=== PATIENT | male | born 1975 | race Caucasian/White ===

== ENCOUNTER 2016-12-27 08:26 | Day surgery (SDC) | payer BC ==
[2016-12-26 10:08] LABS: BASOPHILS 0.2 %; BASOPHILS ABSOLUTE 0.02 10/3/uL (0.0-0.16); EOSINOPHILS 4.6 %; EOSINOPHILS ABSOLUTE 0.42 10/3/uL (0.0-0.53); HEMATOCRIT 39.8 % (40.0-51.0); HEMOGLOBIN 13.2 g/dL (13.6-17.8); IMMATURE GRANULOCYTES 0.2 %; IMMATURE GRANULOCYTES ABSOLUTE 0.02 10/3/uL (0.0-0.11); LYMPHOCYTES ABSOLUTE 2.74 10/3/uL (0.67-4.30); MEAN CORPUS HGB CONC 33.2 g/dL (32.0-36.0); MEAN CORPUSCULAR HEMOGLOB 30.3 pg (26.0-34.0); MEAN CORPUSCULAR VOLUME 91.3 fL (80-100); MEAN PLATELET VOLUME 10.6 fL (9.2-13.0); MONOCYTES 9.1 %; MONOCYTES ABSOLUTE 0.83 10/3/uL (0.21-1.20); NEUTROPHILS 55.9 %; NEUTROPHILS ABSOLUTE 5.09 10/3/uL (2.02-8.40); PLATELET COUNT 246 10/3/uL (150-400); RBC DISTRIBUTION WIDTH 14.5 % (12.0-16.0); RED CELL COUNT 4.36 10/6/uL (4.7-6.1); WHITE BLOOD CELLS 9.1 10/3/uL (4.5-10.5)
[2016-12-26 10:11] LABS: MANUAL DIFF NO %
[2016-12-26 10:29] LABS: A/G RATIO 1.1 (0.7-1.9); ALBUMIN 3.7 G/DL (3.5-5.0); BUN (BLOOD UREA NITROGEN) 15 MG/DL (6-23); CALCIUM, SERUM 8.7 MG/DL (8.5-10.4); CHLORIDE, SERUM 103 MMOL/L (96-112); CO2 (CARBON DIOXIDE) 31 MMOL/L (24-34); CREATININE 1.12 MG/DL (0.70-1.30); GFR AFRICAN AMERICAN 95 ML/MIN (>=60); GFR NON AFRICAN AMERICAN 82 ML/MIN (>=60); GLOBULIN 3.4 G/DL (2.5-4.1); GLUCOSE, SERUM 98 MG/DL (60-99); POTASSIUM, SERUM 4.9 MMOL/L (3.5-5.3); SGOT(AST) 35 U/L (5-40); SGPT(ALT) 70 U/L (5-65); SODIUM, SERUM 141 MMOL/L (135-148); TOTAL BILIRUBIN 0.3 MG/DL (0-1.2); TOTAL PROTEIN 7.1 G/DL (6.0-8.5)
[2016-12-26 10:30] LABS: ALKALINE PHOSPHATASE 132 U/L (45-117)
[2016-12-26 10:44] LABS: ASCORBIC ACID (UR NOT ORDER) NEG (NEG); BILIRUBIN, URINE NEGATIVE (NEG); KETONE, URINE NEGATIVE (NEG); LEUKOCYTE ESTERASE(NOT OR NEG (NEG); WBC (NOT ORDERED) (RFLEX) 1 (0-5)
--- NOTE | ~2016-12-27 | OP ---
Record Of Operation [facility] [address] [place] [address] NAME: SHOAIB HERRERA : 79 STATUS : [facility]#: [id number] AGE: 41 ADM/REG DATE : 12/27/16 MR#: [id number] REPORT SERV DATE: 12/27/16 DICTATED BY: NHUNG FRANCO DATE: 12/27/16 REPORT STATUS : Draft TRANSCRIBED BY: MODL DATE: 12/27/16 DATE OF PROCEDURE: 12/27/2016 PREOPERATIVE DIAGNOSIS: Symptomatic gallstones. POSTOPERATIVE DIAGNOSIS: Symptomatic gallstones with a massive fat-infiltrated liver obscuring the view to the gallbladder for cholecystectomy. PROCEDURE: Laparoscopic cholecystectomy with intraoperative cholangiogram. I did a 22 modifier, double the normal amount of time due to difficulty with exposure due to large liver. SURGEON: Nhung Franco M.D. ANESTHESIA: General endotracheal. ESTIMATED BLOOD LOSS: Nil. FLUIDS: Crystalloid. SPECIMEN: Gallbladder. DRAINS: None. COMPLICATIONS: None. CONDITION: Good. INDICATIONS: Mr. Herrera is a 41-year-old, suffering from recurring bouts of epigastric right upper quadrant abdominal pain. Workup reveals normal blood work, gallstones. After review of risks, benefits, options, and side effects, he would like to proceed with cholecystectomy to try to get symptom relief. PROCEDURE IN DETAIL: After being identified in preop holding, he was brought to the OR and positioned supine. General endotracheal anesthesia was induced. Time-out was performed. The abdomen was prepped and draped sterilely. Ancef was given intravenously. 0.5% Marcaine was infiltrated. In the infraumbilical position, a vertical skin incision was made. The skin was grasped with towel clip, elevated, and a Veress needle was inserted into the peritoneal cavity as confirmed by saline drop test. A 15-mm carbon dioxide pneumoperitoneum was created, the Veress needle was removed, and a 5-mm trocar was inserted. A 30-degree laparoscope was inserted within the peritoneal cavity. There was no visceral injury. The intraabdominal content was inspected, appeared grossly normal with the exception of an impressively enlarged fat-infiltrated liver with no cirrhotic change. There were adhesions in the area of the gallbladder suggesting prior inflammation. The patient was positioned rather steeply, head up, foot down, rolled right side up and after Marcaine infiltration and appropriate skin incisions, a 10-mm trocar was inserted subxiphoid and two 5 mm were Record Of Operation [address] [address] NAME: SHOAIB HERRERA : 79 STATUS : [facility] PAT#: [id number] AGE: 41 ADM/REG DATE : 12/27/16 MR#: [id number] REPORT SERV DATE: 12/27/16 DICTATED BY: NHUNG FRANCO DATE: 12/27/16 REPORT STATUS : Draft TRANSCRIBED BY: MODAbimael DATE: 12/27/16 inserted subcostally on the right in the midclavicular and the anterior axillary line. The adherent omentum was taken down from the gallbladder and liver with scissor. There was no adherent bowel. Once the gallbladder was exposed, it was grasped and elevated. There was filmy adhesion in the entire length of the gallbladder, which was taken down with both scissor and [place] dissector. The gallbladder was almost accordant above the level of the duodenal sweep. Graspers had to be positioned more towards hepatic hilum to adequately expose. I was able to identify and retract the neck of gallbladder opening the peritoneal folds and it was difficult to see the cystic duct coming off the gallbladder due to the rather protuberant fat-infiltrated liver in the area. With several repositioning of the graspers, I was able to retract the gallbladder in a manner that then allowed exposure of the cystic duct egressing the gallbladder. The cystic duct was quite small. The cystic duct was dissected circumferential, milked towards the gallbladder, and an occlusive clip was placed across the neck. A cystic ductotomy was made and cholangiogram catheter was inserted and anchored. Fluoroscopy was brought on the field and cholangiogram showed a rather short cystic duct, narrow caliber, coursing the nondilated common duct with prompt flow distal into duodenum and with additional contrast, there was opacification of the proper hepatic duct and the main left and right hepatic ducts. Confirming a normal anatomy without dilation, no filling defect, and prompt flow of contrast in the duodenum, fluoroscopy was taken off the field and the laparoscopic instrumentation was reinserted. Gallbladder was re-retracted, cholangiogram catheter removed, and the cystic duct was clipped occlusively x3 on the common duct side of cannulation. Carefully dissected in Calot's triangle. This was quite difficult, as the view was obscured by the protuberant fatty liver. Again, with repeated attempts at grasping and re-retracting the gallbladder and positioning the laparoscope, I was ultimately able to see clearly. I was able to dissect what appeared to either be a blood vessel or a prominent lymphatic bundle coursing between the lymph node and Calot's triangle and the gallbladder. This was dissected circumferential, clipped x3, divided between middle clip on gallbladder side. Now, carefully and bluntly dissected along the posterior aspect of the neck of the gallbladder and encountered what appeared to be additional vascular structure coursing directly into the gallbladder. This again was dissected circumferential, clipped x2, and divided on the surface of the gallbladder with hook cautery. Again, we had to repeatedly re-grasp and re- retract the gallbladder to allow exposure of the plane of dissection between the gallbladder and the liver bed medial and lateral and after an inordinate amount of time positioning both laparoscopic graspers and laparoscope, I was able to excise the gallbladder from the liver bed with electrocautery. We did not enter the liver or the gallbladder. We maintained good visualization and simply took a lot of time to get the retractors laid out properly, again the major obstacle being the huge fatty liver that was obscuring the view. Once the gallbladder had been excised from the liver bed, it was placed in EndoCatch and extracted readily out the subxiphoid trocar path. Reinserted the 10-mm subxiphoid trocar, suctioned all sub and suprahepatic fluid, thoroughly inspected the operative field, and we had good clip positioning. No bleeding. No evidence of bile leak. At this point, the remaining 5-mm trocars were removed with visualization through laparoscope. The abdomen was desufflated and the subxiphoid 10-mm trocar was Record Of Operation [facility] [address] [place]. [address] NAME: SHOAIB HERRERA : 79 STATUS : [facility]#: [id number] AGE: 41 ADM/REG DATE : 12/27/16 MR#: [id number] REPORT SERV DATE: 12/27/16 DICTATED BY: NHUNG FRANCO DATE: 12/27/16 REPORT STATUS : Draft TRANSCRIBED BY: MODL DATE: 12/27/16 removed. Dermis was closed in all incisions with 4-0 Monocryl followed by Benzoin, Steri- Strips, and sterile dressing. Mr. Herrera tolerated the surgery well. He was recovered from his anesthetic, extubated, and transported to the recovery room in good condition. I would point out that due to the difficulty visualization and dissection of the gallbladder due to large fatty liver, we are going to do a 22 modifier for difficulty. Total operative time was double the normal amount required for a cholecystectomy in this patient. JARON/CHRISTIANNE Nhung Franco M.D. / [id number] CC: Drake Hall MD
[~2016-12-27 08:26] MED LIST: DOLOPHINE10 MG PO; IBU-200200 MG PO; PRILO PO; REGL PO
== END 2016-12-27 15:19 | disposition home or self-care (01) ==
LOC: SDC 08:26
PROVIDERS: Surgery
PROC: BF03YZZ Plain Radiography of Gallbladder and Bile Ducts using Other Contrast (ICD-10-PCS; 2016-12-27)
PROC: 0FT44ZZ Resection of Gallbladder, Percutaneous Endoscopic Approach (ICD-10-PCS; principal; 2016-12-27 10:00)
DX: K80.10 Calculus of gallbladder with chronic cholecystitis without obstruction (principal); E11.9 Type 2 diabetes mellitus without complications; K31.84 Gastroparesis
CPT/HCPCS: 74300; 80053; 81001; 82150; 82962; 85025; 88304; A9270-GY; J0360; J0690; J1170; J2250; J2405; J2550; J2710; J3010; Q9967